=== PATIENT | female | born 1965 | race Two or more races ===

== ENCOUNTER 2018-01-16 07:22 | Day surgery (SDC) | payer OTHER ==
[2018-01-16] MEDS ORDERED: PROPOFOL 20 ML (08:45)
[2018-01-16] MEDS ORDERED: MIDAZOLAM 1 MG/ML 2 ML INJ ×2 (08:45→09:52)
[2018-01-16] MEDS ORDERED: CEFAZOLIN 1 GM INJ (08:45)
[2018-01-16] MEDS ORDERED: ROCURONIUM 50 MG INJ (08:45)
[2018-01-16] MEDS ORDERED: ROPIVACAINE 0.5 % 30 ML VIAL (08:45)
[2018-01-16] MEDS ORDERED: FENTAnyl 50 MCG/ML VIAL ×2 (08:45→11:58)
[2018-01-16] MEDS ORDERED: HYDROmorphONE (0.2 MG/ML) 10ML SYG IV ×3 (09:00)
[2018-01-16] MEDS ORDERED: FENTAnyl 50 MCG/ML VIAL IV ×3 (09:00)
[2018-01-16] MEDS ORDERED: MEPERIDINE 25 MG INJ IV (09:00)
[2018-01-16] MEDS ORDERED: LACTATED RINGER'S 1,000 ML IV* (09:00)
[2018-01-16] MEDS ORDERED: OXYCODONE/ACETAMINOPHEN (5/325) TAB PO ×2 (09:00)
[2018-01-16] MEDS ORDERED: CEFAZOLIN 2 GM/50 ML (PMX) 50 ML IVPB (09:00)
[2018-01-16] MEDS ORDERED: hydrALAzine 20 MG INJ IV (09:00)
[2018-01-16] MEDS ORDERED: DIPHENHYDRAMINE 50 MG INJ IV (09:00)
[2018-01-16] MEDS ORDERED: LABETALOL HCL 20MG INJ IV (09:00)
[2018-01-16] MEDS ORDERED: ONDANSETRON 4 MG INJ IV (09:00)
[2018-01-16] MEDS ORDERED: METOCLOPRAMIDE 10 MG INJ IV (09:00)
[2018-01-16] MEDS ORDERED: EPHEDrine SULFATE 50 MG/5 ML SYG IV (09:00)
[2018-01-16] MEDS ORDERED: INFLUENZA VIRUS VACCINE 0.5 ML (DISPENSING) IM* (09:30)
[2018-01-16] MEDS: POLYMYXIN/BACITRACIN 1L IRRIG IRR (10:02)
[2018-01-16] MEDS ORDERED: PHENYLephrine (100 MCG/ML) 5ML SYG (10:07)
[2018-01-16] MEDS ORDERED: KETOROLAC 30 MG INJ (10:26)
[2018-01-16] MEDS ORDERED: ACETAMINOPHEN 1000MG/100ML IV 100 ML (10:26)
[2018-01-16] MEDS ORDERED: METOCLOPRAMIDE 10 MG INJ (10:26)
[2018-01-16] MEDS ORDERED: ONDANSETRON 4 MG INJ (10:26)
[2018-01-16] MEDS ORDERED: DEXAMETHASONE 4 MG/ML 1 ML INJ (10:26)
== END 2018-01-16 15:00 | disposition home or self-care (01) ==
LOC: SDS 07:22
DX: S52.202K Unspecified fracture of shaft of left ulna, subsequent encounter for closed fracture with nonunion (principal); W19.XXXD Unspecified fall, subsequent encounter; F17.200 Nicotine dependence, unspecified, uncomplicated
CPT/HCPCS: 25405; 73110-LT; 90686